=== PATIENT | female | born 1960 | race American Indian/Alaskan Native ===

== ENCOUNTER 2017-01-20 13:38 | Outpatient (CLI) | payer BC ==
--- NOTE | 2017-01-20 15:21 | Cat Scan Report ---
CT head without contrast: History: Breast cancer, chronic headache, blurred vision. Axial images demonstrates low attenuation within the sella turcica. No obvious evidence of bone erosion. The neuro anatomy otherwise appears generally unremarkable. The ventricles are normal in size, position, and contour. No focal lesion and no extracerebral collection identified. The visualized bony structures and paranasal sinuses are unremarkable. Impressions: Findings consistent with empty sella.
== END 2017-01-20 13:39 | disposition home or self-care (01) ==
LOC: SPVIMAG 13:38
PROVIDERS: ATTEND Internal Medicine
DX: R51 Headache (principal); H53.8 Other visual disturbances; Z85.3 Personal history of malignant neoplasm of breast
CPT/HCPCS: 70450